=== PATIENT | male | born 1975 ===

== ENCOUNTER → 2018-04-29 | Outpatient (CLI) | payer OTHER ==
--- NOTE | 2018-05-01 13:15 | MM ---
Reason for exam: clinical finding. Indicated problem(s): lump or thickening in the left breast. Physical Findings: Nurse Summary: 1cm nodule in the left breast at 10 o'clock (nurse mj). [facility] Mammo w CAD LAURA Bilateral CC and MLO view(s) were taken. The breast tissue is almost entirely fat. There is no discrete abnormality. These results were verbally communicated with the patient and result sheet given to the patient on 04/29/18. ASSESSMENT: Incomplete: need additional imaging evaluation, BI-RAD 0 RECOMMENDATION: Ultrasound of the left breast.
--- NOTE | 2018-05-01 13:19 | USB ---
Reason for exam: additional evaluation requested from abnormal screening. US Breast LT Left complete breast ultrasound includes all four quadrants, the retroareolar region and axilla. Finding demonstrates a 1.6 x 0.6 x 2.0cm oval, slightly hypoechoic lesion at 10 o'clock, possible lipoma. These results were verbally communicated with the patient and result sheet given to the patient on 04/29/18. ASSESSMENT: Probably benign, BI-RAD 3 RECOMMENDATION: Surgical consultation and ultrasound core biopsy of the left breast. (can be done if desired) Manage patient on a clinical basis. Called Urmila BUTCHER at [facility] with mammographic findings and office to call patient to set up surgical consult. PRELIMINARY REPORT CALLED AND FAXED TO URMILA BUTCHER ON 05/01/18.
== END | disposition home or self-care (01) ==
LOC: RADMAMWWP 14:49
DX: R92.8 Other abnormal and inconclusive findings on diagnostic imaging of breast (principal); N63.21 Unspecified lump in the left breast, upper outer quadrant
CPT/HCPCS: 77066

== ENCOUNTER → 2019-05-21 | Outpatient (CLI) | payer OTHER ==
--- NOTE | 2019-05-21 10:21 | USB ---
Reason for exam: clinical finding. History: Family history of breast cancer in maternal aunt at age 50. Indicated problem(s): palpable abnormality and lump or thickening in the left breast. Physical Findings: Nurse Summary: 1cm firm movable nodule at 10 o'clock (nurse dw). US Breast LT Left complete breast ultrasound includes all four quadrants, the retroareolar region and axilla. Finding demonstrates a 7 x 4 x 6mm oval, solid, hyperechoic lesion at 5 o'clock, may have been at 6 o'clock previously and a 21 x 6 x 16mm oval, solid lesion at 10 o'clock BB, stable. These results were verbally communicated with the patient and result sheet given to the patient on 05/21/19. ASSESSMENT: Benign, BI-RAD 2 RECOMMENDATION: Clinical management of the left breast. Manage patient on a clinical basis.
== END | disposition home or self-care (01) ==
LOC: RADUSWWP 09:34
DX: N63.20 Unspecified lump in the left breast, unspecified quadrant (principal)

== ENCOUNTER → 2020-04-21 | Outpatient (CLI) | payer OTHER ==
--- NOTE | 2020-04-21 14:02 | MR ---
MRI CERVICAL SPINE: CLINICAL HISTORY: Headache with neck pain for 4 months per patient. Pain or weakness into both arms a nd fingers per patient.. TECHNIQUE: Multiplanar, multisequence imaging of the cervical spine is performed without iv contrast. COMPARISON: None. FINDINGS: Coronal images show levoconvex scoliotic curvature centered at C6 level. Sagittal images of the cervical spine show the craniocervical junction to appear within normal limits. The cervical an d upper thoracic spinal cord is normal in caliber and signal. Some reversal of normal cervical curvat ure on sagittal images with grade 1 retrolisthesis C4 and C5, C5 on C6, and C6 on C7. The vertebral body heights are normal. Mild disc space narrowing C5-C6 level. Posterior disc herniations effacing the anterior thecal sac C4-C5 through C6-C7 levels. The bone marrow signal intensity is within normal limits. Axial images show the C2-C3 level to appear within normal limits. Axial images at C3-C4 level show broad-based lobulated posterior disc protrusion mildly effacing ante rior thecal sac with uncovertebral facet degenerative changes causing moderate right-sided neural for aminal narrowing. Axial images at C4-C5 level shows central disc protrusion effacing anterior thecal sac nearly up to v entral surface of spinal cord with mild right-sided neural foraminal narrowing. Axial images at C5-C6 levels small right paracentral disc protrusion mildly effacing the anterolatera l thecal sac with mild to moderate right greater than left bilateral neural foraminal narrowing. Axial images at C6-C7 level shows a left foraminal disc protrusion effacing at the lateral thecal sac and causing asymmetric moderate due to borderline severe left-sided neural foraminal narrowing. Axial images at C7-T1 level appear within normal limits. There is mild to minimal mucosal thickening visualized portion of the sphenoid sinus and bilateral ma xillary sinuses. IMPRESSION: Loss of normal cervical curvature with multilevel spondylolisthesis and degenerative jennings ges as detailed above.
== END | disposition home or self-care (01) ==
LOC: RADMRIMAIN 10:56
PROVIDERS: ATTEND Nurse Practitioner Acute Care
DX: M43.12 Spondylolisthesis, cervical region (principal); M47.892 Other spondylosis, cervical region
CPT/HCPCS: 72141